=== PATIENT | female | born 1985 | race Asian ===

== ENCOUNTER 2018-04-24 22:11 | Emergency (ER) | payer MEDICARE, OTHER ==
[~2018-04-24] VITALS: Ht 160 cm; Wt 53.1 kg
[2018-04-24 22:47] VITALS: BP 125/94
[2018-04-25] MEDS ORDERED: ACETAMINOPHEN 325 MG TABLET PO ONE (00:30)
[2018-04-25] MEDS ORDERED: ACETAMINOPHEN 325 MG TABLET ONE (00:30)
== END 2018-04-25 00:53 | disposition home or self-care (01) ==
LOC: ER 22:13
DX: S90.811A Abrasion, right foot, initial encounter (principal); E11.9 Type 2 diabetes mellitus without complications; Z94.0 Kidney transplant status; W26.8XXA Contact with other sharp object(s), not elsewhere classified, initial encounter; Y93.01 Activity, walking, marching and hiking; Y92.89 Other specified places as the place of occurrence of the external cause; Y99.8 Other external cause status
CPT/HCPCS: 99283; A4606